=== PATIENT | female | born 1990 | race Caucasian/White ===

== ENCOUNTER 2018-08-03 13:34 | Emergency (ER) | payer OTHER ==
[~2018-08-03] VITALS: Ht 149.9 cm; Wt 49.9 kg
[2018-08-03] MEDS ORDERED: IBUP800 PO (14:22)
== END 2018-08-03 14:28 | disposition home or self-care (01) ==
LOC: ER 13:34
DX: S63.501A Unspecified sprain of right wrist, initial encounter (principal); X58.XXXA Exposure to other specified factors, initial encounter; Z88.0 Allergy status to penicillin; Z88.1 Allergy status to other antibiotic agents; F17.200 Nicotine dependence, unspecified, uncomplicated
CPT/HCPCS: 29125; 73110; 99283-25; L3917

== ENCOUNTER 2019-08-08 17:21 | Emergency (ER) | payer OTHER ==
[~2019-08-08] VITALS: Ht 149.9 cm; Wt 49.9 kg
[~2019-08-08 17:21] MED LIST: IBUP800 PO
[2019-08-08 17:59] LABS: Source, Urine Clean Catch
[2019-08-08 18:05] LABS: BASOPHILS ABSOLUTE AUTO 0.02 K/mm3 (0.00-0.23); BASOPHILS PERCENT AUTO 0 % (0-2); EOSINOPHILS ABSOLUTE AUTO 0.01 K/mm3 (0.00-0.68); EOSINOPHILS PERCENT AUTO 0 % (0-6); Hematocrit 42.5 % (33.0-51.0); Hemoglobin 13.8 g/dL (11.5-16.0); IMMATURE GRAN PERCENT AUTO 1 % (0-1); LYMPHOCYTES ABSOLUTE AUTO 0.99 K/mm3 (0.84-5.20); LYMPHOCYTES PERCENT AUTO 5 % (21-46); MONOCYTES ABSOLUTE AUTO 0.52 K/mm3 (0.16-1.47); MONOCYTES PERCENT AUTO 3 % (4-13); Mean Corpuscular HGB 29.5 pg (26.0-34.0); Mean Corpuscular HGB Conc 32.5 g/dL (31.5-36.5); Mean Corpuscular Volume 91 fL (80-100); Mean Platelet Volume 9.6 fL (9.1-12.4); NEUTROPHILS ABSOLUTE AUTO 16.74 K/mm3 (1.96-9.15); NEUTROPHILS PERCENT AUTO 91 % (41-73); Platelet Count 408 K/mm3 (150-400); RDW Coefficient Variation 13.3 % (11.7-14.2); RDW Standard Deviation 44.7 fL (35.1-46.3); Red Blood Cell Count 4.68 M/mm3 (3.80-5.20); White Blood Cell Count 18.38 K/mm3 (4.00-11.30)
[2019-08-08 18:12] LABS: Appearance, Urine Hazy (Clear); Color, Urine Yellow (P-Yellow); Leukocyte Esterase, Urine Neg (Neg); Nitrite, Urine Neg (Neg); Protein, Urine 2+ (Neg); Specific Gravity, Urine 1.015 (1.003-1.022)
[2019-08-08 18:13] LABS: Bilirubin, Urine Neg (Neg); Blood, Urine 3+ (Neg); Glucose Qualitative, Urine Neg (Neg); Ketones, Urine 2+ (Neg); Urobilinogen, Urine NORM (Normal)
[2019-08-08 18:14] LABS: Bacteria Rare /hpf; Mucus Mod (0-Heavy); Renal Epithelial Rare /hpf (0-Rare); Squamous Epithelial Cells Rare /hpf (Few); Transitional Epithelial Cells Rare /hpf (0-Rare); White Blood Cells, Urine 0-2 /hpf (0-5)
[2019-08-08 18:24] LABS: Alanine Aminotransfer (ALT/SGP 31 U/L (12-78); Albumin, Blood 4.6 g/dL (3.4-5.0); Alk Phos 109 U/L (50-136); Anion Gap 9 mmol/L (6-16); Aspartate Aminotrans (AST/SGOT 13 U/L (12-37); Bilirubin, Total 0.5 mg/dL (0.1-1.0); Blood Urea Nitrogen 12 mg/dL (8-24); Bun/Creatinine Ratio 14.6 (12.0-20.0); CO2, Blood 23 mmol/L (21-32); Calcium, Blood 9.3 mg/dL (8.5-10.1); Chloride, Blood 105 mmol/L (98-108); Creatinine, Blood 0.82 mg/dL (0.40-1.00); Globulin, Blood 4.6 g/dL (2.2-4.0); Glomerular Filtration Rate >60 (60-); Glucose, Blood 149 mg/dL (70-99); Potassium, Blood 3.9 mmol/L (3.5-5.5); Sodium, Blood 137 mmol/L (136-145); Total Protein, Blood 9.2 g/dL (6.4-8.2)
[2019-08-08] MEDS ORDERED: KETO10 PO (21:32)
[2019-08-08] MEDS ORDERED: ONDA4ODT MM (21:32)
== END 2019-08-08 21:55 | disposition home or self-care (01) ==
LOC: ER 17:21
PROVIDERS: Physician Assistant
DX: R11.15 Cyclical vomiting syndrome unrelated to migraine (principal); N92.0 Excessive and frequent menstruation with regular cycle; F17.200 Nicotine dependence, unspecified, uncomplicated; Z88.0 Allergy status to penicillin; Z88.1 Allergy status to other antibiotic agents
CPT/HCPCS: 36415; 74177; 80053; 81001; 83690; 85025; 96361; 96374-59; 96375; 96376; 99284-25; J1200; J1630; J1885; J2405; J7030; Q9967

== ENCOUNTER 2019-11-18 11:10 | Emergency (ER) | payer OTHER ==
[~2019-11-18] VITALS: Ht 149.9 cm; Wt 54.4 kg
[~2019-11-18 11:10] MED LIST changes: +KETO10 PO; +ONDA4ODT MM
[2019-11-18 12:50] LABS: BASOPHILS ABSOLUTE AUTO 0.03 K/mm3 (0.00-0.23); BASOPHILS PERCENT AUTO 0 % (0-2); EOSINOPHILS ABSOLUTE AUTO 0.01 K/mm3 (0.00-0.68); EOSINOPHILS PERCENT AUTO 0 % (0-6); Hematocrit 42.1 % (33.0-51.0); Hemoglobin 13.8 g/dL (11.5-16.0); IMMATURE GRAN ABSOLUTE AUTO 0.08 K/mm3 (0.00-0.10); IMMATURE GRAN PERCENT AUTO 0 % (0-1); LYMPHOCYTES ABSOLUTE AUTO 0.83 K/mm3 (0.84-5.20); LYMPHOCYTES PERCENT AUTO 4 % (21-46); MONOCYTES PERCENT AUTO 2 % (4-13); Mean Corpuscular HGB 30.7 pg (26.0-34.0); Mean Corpuscular HGB Conc 32.8 g/dL (31.5-36.5); Mean Corpuscular Volume 94 fL (80-100); NEUTROPHILS ABSOLUTE AUTO 19.16 K/mm3 (1.96-9.15); NEUTROPHILS PERCENT AUTO 93 % (41-73); Platelet Count 331 K/mm3 (150-400); RDW Coefficient Variation 13.3 % (11.7-14.2); RDW Standard Deviation 45.7 fL (35.1-46.3); Red Blood Cell Count 4.49 M/mm3 (3.80-5.20); White Blood Cell Count 20.61 K/mm3 (4.00-11.30)
[2019-11-18 12:55] LABS: Source, Urine Clean Catch
[2019-11-18 12:58] LABS: Bilirubin, Urine Neg (Neg); Blood, Urine 4+ (Neg); Glucose Qualitative, Urine Neg (Neg); Ketones, Urine 4+ (Neg); Leukocyte Esterase, Urine 1+ (Neg); Nitrite, Urine Neg (Neg); Protein, Urine 2+ (Neg); Urobilinogen, Urine NORM (Normal)
[2019-11-18 13:00] LABS: Alanine Aminotransfer (ALT/SGP 29 U/L (12-78); Albumin, Blood 4.4 g/dL (3.4-5.0); Alk Phos 100 U/L (50-136); Anion Gap 4 mmol/L (6-16); Aspartate Aminotrans (AST/SGOT 15 U/L (12-37); Bilirubin, Total 0.5 mg/dL (0.1-1.0); Blood Urea Nitrogen 9 mg/dL (8-24); Bun/Creatinine Ratio 12.9 (12.0-20.0); CO2, Blood 25 mmol/L (21-32); Calcium, Blood 9.6 mg/dL (8.5-10.1); Chloride, Blood 110 mmol/L (98-108); Globulin, Blood 4.2 g/dL (2.2-4.0); Glomerular Filtration Rate >60 (60-); Glucose, Blood 163 mg/dL (70-99); Potassium, Blood 4.1 mmol/L (3.5-5.5); Sodium, Blood 139 mmol/L (136-145); Total Protein, Blood 8.6 g/dL (6.4-8.2)
[2019-11-18 13:20] LABS: Appearance, Urine Hazy (Clear); Color, Urine Yellow (P-Yellow)
[2019-11-18 13:29] LABS: Bacteria Few /hpf; Mucus Heavy (0-Heavy); Squamous Epithelial Cells Few /hpf (Few)
[2019-11-18 13:30] LABS: Granular Casts 0-2 /lpf (0)
[2019-11-18] MEDS ORDERED: Norco 5-325 Ta1 EACH PO (16:24)
[2019-11-18] MEDS ORDERED: Zofran4 MG PO (16:24)
== END 2019-11-18 17:02 | disposition home or self-care (01) ==
LOC: ER 11:10
PROVIDERS: Emergency Medicine
DX: R10.84 Generalized abdominal pain (principal); R11.2 Nausea with vomiting, unspecified; F17.200 Nicotine dependence, unspecified, uncomplicated; Z87.42 Personal history of other diseases of the female genital tract; Z88.0 Allergy status to penicillin; Z88.1 Allergy status to other antibiotic agents
CPT/HCPCS: 36415; 74176; 80053; 81001; 81025; 85025; 87077; 87086; 87147; 87186; 96374; 96375; 96376; 99284-25; J1885; J2405; Q9967

== ENCOUNTER 2020-01-14 06:52 | Emergency (ER) | payer OTHER ==
[~2020-01-14] VITALS: Ht 149.9 cm; Wt 54.4 kg
[~2020-01-14 06:52] MED LIST changes: +Norco 5-325 Ta1 EACH PO; +Zofran4 MG PO
[2020-01-14 07:31] LABS: Source, Urine Clean Catch
[2020-01-14 07:35] LABS: BASOPHILS ABSOLUTE AUTO 0.03 K/mm3 (0.00-0.23); BASOPHILS PERCENT AUTO 0 % (0-2); EOSINOPHILS PERCENT AUTO 0 % (0-6); Hemoglobin 15.7 g/dL (11.5-16.0); IMMATURE GRAN PERCENT AUTO 1 % (0-1); LYMPHOCYTES ABSOLUTE AUTO 2.55 K/mm3 (0.84-5.20); LYMPHOCYTES PERCENT AUTO 16 % (21-46); MONOCYTES ABSOLUTE AUTO 1.41 K/mm3 (0.16-1.47); MONOCYTES PERCENT AUTO 9 % (4-13); Mean Corpuscular HGB 30.3 pg (26.0-34.0); Mean Corpuscular HGB Conc 34.9 g/dL (31.5-36.5); Mean Corpuscular Volume 87 fL (80-100); Mean Platelet Volume 9.4 fL (9.1-12.4); NEUTROPHILS ABSOLUTE AUTO 11.92 K/mm3 (1.96-9.15); NEUTROPHILS PERCENT AUTO 75 % (41-73); Platelet Count 458 K/mm3 (150-400); RDW Coefficient Variation 12.3 % (11.7-14.2); RDW Standard Deviation 39.7 fL (35.1-46.3); Red Blood Cell Count 5.18 M/mm3 (3.80-5.20); White Blood Cell Count 16.01 K/mm3 (4.00-11.30)
[2020-01-14 07:36] LABS: Bilirubin, Urine Neg (Neg); Blood, Urine 4+ (Neg); Glucose Qualitative, Urine Neg (Neg); Ketones, Urine 1+ (Neg); Leukocyte Esterase, Urine 1+ (Neg); Nitrite, Urine Neg (Neg); Protein, Urine 3+ (Neg); Urobilinogen, Urine NORM (Normal)
[2020-01-14 07:42] LABS: Appearance, Urine Hazy (Clear); Color, Urine Yellow (P-Yellow)
[2020-01-14 07:44] LABS: Bacteria Many /hpf; Squamous Epithelial Cells Mod /hpf (Few)
[2020-01-14 07:45] LABS: Transitional Epithelial Cells Few /hpf (0-Rare)
[2020-01-14 07:58] LABS: Albumin, Blood 4.7 g/dL (3.4-5.0); Albumin/Globulin Ratio 0.9 (0.8-1.8); Bilirubin, Total 0.9 mg/dL (0.1-1.0); Bun/Creatinine Ratio 38.6 (12.0-20.0); Calcium, Blood 9.5 mg/dL (8.5-10.1); Creatinine, Blood 1.27 mg/dL (0.40-1.00); Globulin, Blood 5.2 g/dL (2.2-4.0); Potassium, Blood 3.4 mmol/L (3.5-5.5); Total Protein, Blood 9.9 g/dL (6.4-8.2)
[2020-01-14 09:10] LABS: Influenza A, PCR Negative (NEGATIVE); Influenza B, PCR Negative (NEGATIVE); Resp Syncytial Virus, PCR Negative (NEGATIVE); SARS-Cov-2 (COVID-19) PCR, MMC Negative (NEGATIVE)
[2020-01-14] MEDS ORDERED: ONDA4ODT MM (11:14)
== END 2020-01-14 11:25 | disposition home or self-care (01) ==
LOC: ER 06:52
PROVIDERS: Emergency Medicine
DX: R11.2 Nausea with vomiting, unspecified (principal); E86.0 Dehydration; Z20.828 Contact with and (suspected) exposure to other viral communicable diseases; Z88.0 Allergy status to penicillin
CPT/HCPCS: 0241U; 36415; 76705; 80053; 81001; 81025; 83690; 85025; 87086; 96361; 96374; 96375; 96376; 99284-25; J2405; J2550; J7030

== ENCOUNTER 2020-04-02 06:31 | Emergency (ER) | payer OTHER ==
[~2020-04-02] VITALS: Ht 149.9 cm; Wt 81.7 kg
[2020-04-02 07:37] LABS: Source, Urine Clean Catch
[2020-04-02 07:43] LABS: Bilirubin, Urine Neg (Neg); Blood, Urine 4+ (Neg); Glucose Qualitative, Urine Neg (Neg); Ketones, Urine 1+ (Neg); Leukocyte Esterase, Urine 2+ (Neg); Nitrite, Urine Neg (Neg); Protein, Urine 2+ (Neg); Specific Gravity, Urine 1.015 (1.003-1.022); Urobilinogen, Urine NORM (Normal)
[2020-04-02 07:45] LABS: Calcium, Ionized (POC) 1.04 mmol/L (1.10-1.46); Chloride (POC) 90 mmol/L (98-108); Glucose (ISTAT POC) 121 mg/dL (70-99); Potassium (POC) 3.3 mmol/L (3.5-5.5); Sodium (POC) 127 mmol/L (135-148); Total CO2 (POC) 27 mmol/L (21-32)
[2020-04-02 07:49] LABS: Appearance, Urine Clear (Clear); Color, Urine Yellow (P-Yellow)
[2020-04-02] MEDS ORDERED: Zofran4 MG PO (07:50)
[2020-04-02 07:51] LABS: Bacteria Mod /hpf; Squamous Epithelial Cells Few /hpf (Few)
== END 2020-04-02 08:02 | disposition home or self-care (01) ==
LOC: ER 06:31
PROVIDERS: Emergency Medicine
DX: R11.15 Cyclical vomiting syndrome unrelated to migraine (principal); F12.90 Cannabis use, unspecified, uncomplicated; Z88.0 Allergy status to penicillin; Z88.1 Allergy status to other antibiotic agents
CPT/HCPCS: 80047; 81001; 81025; 85014; 87086; 96374; 99284-25; J2405; J7030

== ENCOUNTER 2020-08-15 17:41 | Emergency (ER) | payer OTHER ==
[~2020-08-15] VITALS: Ht 149.9 cm; Wt 86.2 kg
[2020-08-15] MEDS ORDERED: LIDO700A20 TOP (19:46)
[2020-08-15] MEDS ORDERED: CYCL10 PO (19:46)
== END 2020-08-15 20:21 | disposition home or self-care (01) ==
LOC: ER 17:41
DX: M79.604 Pain in right leg (principal); Z88.0 Allergy status to penicillin; Z88.1 Allergy status to other antibiotic agents
CPT/HCPCS: 93971; 96372; 99283-25; A9270; J1885